=== PATIENT | male | born 2000 | race African-American/Black ===

== ENCOUNTER → 2020-01-22 | Outpatient (CLI) | payer OTHER ==
--- NOTE | 2020-01-22 14:58 | RAD ---
EXAMINATION: SHOULDER 2+V LEFT CLINICAL HISTORY: Left shoulder pain. TECHNIQUE: SHOULDER 2+V LEFT Number of images/views: 3 COMPARISON: None FINDINGS: Glenohumeral and acromioclavicular joints maintained. No acute fracture. Acromiohumeral interval maintained. IMPRESSION: No acute osseous abnormality. Electronically signed by: Mao Wiseman DO (01/22/2020 2:55 PM) [id number]
== END | disposition home or self-care (01) ==
LOC: DXRAD 14:05
PROVIDERS: ATTEND Orthopaedic Surgery
DX: M25.512 Pain in left shoulder (principal)
CPT/HCPCS: 73030